=== PATIENT | male | born 1970 | race Caucasian/White ===

== ENCOUNTER 2023-10-04 20:45 | Emergency (ER) | payer OTHER ==
[~2023-10-04] VITALS: Ht 167.6 cm; Wt 86.2 kg
[2023-10-04] MEDS ORDERED: ONDANSETRON 4 MG TAB.RAPDIS ONE (21:27)
[2023-10-04] MEDS ORDERED: MORPHINE SULFATE INJ 4 MG/ML DISP.SYRIN ONE (21:27)
[2023-10-04] MEDS: MORPHINE SULFATE INJ 2 MG/ML DISP.SYRIN IM ONE (21:39)
[2023-10-04] MEDS: ONDANSETRON 4 MG TAB.RAPDIS PO ONE (21:39)
[2023-10-04] MEDS ORDERED: PROPOFOL 20 ML IV ONE (22:12)
[2023-10-04] MEDS: PROPOFOL 200 MG/20 ML VIAL IV ONE (22:53)
[2023-10-05 00:26] VITALS: BP 148/99; TEMP 98.5; O2SAT 99
== END 2023-10-05 00:26 | disposition home or self-care (01) ==
LOC: ER 20:52
DX: S43.085A Other dislocation of left shoulder joint, initial encounter (principal); W01.0XXA Fall on same level from slipping, tripping and stumbling without subsequent striking against object, initial encounter; Y93.89 Activity, other specified; Y92.89 Other specified places as the place of occurrence of the external cause; Y99.0 Civilian activity done for income or pay
CPT/HCPCS: 99285; 23650; 96372; 73060; 73030; 73020; J2704; J2270; Q0162